=== PATIENT | female | born 1945 | race Two or more races ===

== ENCOUNTER 2017-03-16 10:57 | Emergency (ER) | payer MEDICARE ==
[~2017-03-16] VITALS: Ht 152.4 cm; Wt 60.0 kg
[2017-03-16 11:06] VITALS: BP 161/82
[2017-03-16] MEDS ORDERED: HYDROcodone/APAP 5/325 TABLET PO PRN (12:00)
[2017-03-16] MEDS ORDERED: HYDROcodone/APAP 5/325 TABLET ONE (12:23)
== END 2017-03-16 13:29 | disposition home or self-care (01) ==
LOC: ED 13:26
DX: M17.11 Unilateral primary osteoarthritis, right knee (principal); I10 Essential (primary) hypertension
CPT/HCPCS: 99284